=== PATIENT | male | born 1985 | race Caucasian/White ===

== ENCOUNTER 2017-04-16 06:06 | Emergency (ER) | payer OTHER ==
[~2017-04-16] VITALS: Ht 188 cm; Wt 91.7 kg
[2017-04-16 06:08] VITALS: BP 104/90
[2017-04-16] MEDS ORDERED: MOTRIN800 MG PO (08:44)
[2017-04-16] MEDS ORDERED: NORCO 5/3251 TABLET PO (08:44)
[2017-04-16] MEDS ORDERED: KEFLEX500 MG PO (08:44)
== END 2017-04-16 09:33 | disposition home or self-care (01) ==
LOC: EME 06:06
DX: S67.193A Crushing injury of left middle finger, initial encounter (principal); S62.633B Displaced fracture of distal phalanx of left middle finger, initial encounter for open fracture; W23.0XXA Caught, crushed, jammed, or pinched between moving objects, initial encounter; W20.8XXA Other cause of strike by thrown, projected or falling object, initial encounter; Y93.B3 Activity, free weights
CPT/HCPCS: 73140; 99281; 99283